=== PATIENT | male | born 1980 | race African-American/Black ===

== ENCOUNTER 2019-05-01 18:29 | Emergency (ER) | payer OTHER ==
[~2019-05-01] VITALS: Ht 188 cm; Wt 115.7 kg
[2019-05-01 19:02] VITALS: BP 154/94
--- NOTE | 2019-05-01 21:44 | NUR ---
PT AMBULATED TO BED 04
--- NOTE | 2019-05-01 21:56 | NUR ---
38 Y/O MALE PRESENTS TO ED, SEEKING PROPHYLACTIC TX FOR STI. PT STATES HAVING UNPROTECTED SEX. PT HAS NO HX OF STI. PT DENIES ANY PENILE PAIN. NO ABNORMAL DRAINAGE OR ULCERS ON PENIS. PT VSS. ERMD AWARE. WILL CONTINUE TO MONITOR.
[2019-05-01] MEDS ORDERED: AZITHROMYCIN 250 MG TAB PO ONE (22:55)
[2019-05-01] MEDS ORDERED: cefTRIAXone 1,000 MG in LIDOCAINE MPF 1% 2.1 ML IM ONE (22:55)
[2019-05-01] MEDS ORDERED: LIDOCAINE MPF 1% 5 ML ONE (23:01)
[2019-05-01] MEDS ORDERED: cefTRIAXone 1,000 MG VIAL ONE (23:01)
[2019-05-01 23:21] VITALS: BP 154/94
--- NOTE | 2019-05-01 23:21 | NUR ---
Patient discharged with v/s stable. Written and verbal after care instructions given and explained. Patient alert, oriented and verbalized understanding of instructions. Ambulatory with steady gait. All questions addressed prior to discharge. ID band removed. Patient advised to follow up with PMD. Rx of DOXYCYCLINE , TRUVADA WAS given. Patient educated on indication of medication including possible reaction and side effects. Opportunity to ask questions provided and answered. DR. DURAN D/C PT
== END 2019-05-01 23:21 | disposition home or self-care (01) ==
LOC: MED 18:29
DX: Z20.2 Contact with and (suspected) exposure to infections with a predominantly sexual mode of transmission (principal); Z91.040 Latex allergy status
CPT/HCPCS: 96372; 99283; J0696; J2001